=== PATIENT | female | born 1965 ===

== ENCOUNTER 2018-08-19 16:16 | Outpatient (REF) | payer MEDICARE, MEDICAID, SELFPAY ==
[2018-08-19 22:36] LABS: ALT 13 U/L (12-78); AST 9 U/L (15-37); Albumin 3.4 g/dL (3.4-5.0); Alkaline Phosphatase 113 U/L (46-116); Anion Gap 11.6 mmol/L (3-11); BUN 13 mg/dL (7-18); Bilirubin, Total 0.4 mg/dL (0.2-1.0); C-Reactive Protein 1.39 mg/dL (0.0-0.3); CO2 25.4 mmol/L (21.0-32.0); CREATININE 1.01 mg/dL (0.55-1.02); Calcium 9.2 mg/dL (8.5-10.1); Chloride 102 mmol/L (98-107); Estimated GFR 57.79 (mL/min/1.73m2); Glucose 165 mg/dL (70-100); Magnesium 2.2 mg/dL (1.8-2.4); Potassium 4.1 mmol/L (3.5-5.1); Sodium 139 mmol/L (136-145); Total Protein 7.4 g/dL (6.4-8.2)
[2018-08-19 22:41] LABS: Hemoglobin A1C 8.6 % (4.5-6.2)
== END 2018-08-19 16:36 ==
LOC: NCHCN 16:16
PROVIDERS: PCP Family Medicine; Visit Provider Registered Nurse
DX: E11.9 Type 2 diabetes mellitus without complications (principal); E66.01 Morbid (severe) obesity due to excess calories
CPT/HCPCS: 80053; 83036; 83735; 86140

== ENCOUNTER 2019-03-23 23:07 | Outpatient (REF) | payer MEDICARE, MEDICAID, SELFPAY ==
[2019-03-23 21:57] LABS: Abs Immature Grans 0.05 k/cumm (0.0-0.09); Absolute Basophil Count 0.04 k/cumm (0.0-0.2); Absolute Lymphocyte Count 2.73 k/cumm (1.2-3.4); Absolute Monocyte Count 0.84 k/cumm (0.11-0.7); Absolute Neutrophil Count 7.86 k/cumm (1.2-6.7); Basophils % 0.3; Eosinophils % 1.7; HCT 44.6 % (36.0-46.0); HGB 14.6 g/dL (12.0-15.5); Immature Grans % 0.4; Lymphocytes % 23.3; Mean Corp. HGB Concentration 32.7 g/dL (32.0-36.0); Mean Corpuscular Hemoglobin 28.7 pg (27.0-33.0); Mean Corpuscular Volume 87.6 fL (80-95); Mean Platelet Volume 10.6 fL (8.0-11.0); Monocytes % 7.2; Neutrophils % 67.1; Platelet Count 371 x1000/uL (130-400); RBC 5.09 m/cumm (4.00-5.20); RBC Distribution Width 13.4 % (11.7-14.6); White Blood Cell Count 11.72 k/cumm (4.4-10.8)
[2019-03-23 22:17] LABS: ALT 12 U/L (14-59); AST 11 U/L (15-37); Albumin 3.8 g/dL (3.4-5.0); Alkaline Phosphatase 100 U/L (46-116); Anion Gap 9.3 mmol/L (3-11); BUN 12 mg/dL (7-18); Bilirubin, Total 0.7 mg/dL (0.2-1.0); CO2 28.7 mmol/L (21.0-32.0); CREATININE 1.11 mg/dL (0.55-1.02); Calcium 9.2 mg/dL (8.5-10.1); Calculated LDL 59 mg/dL; Chloride 105 mmol/L (98-107); Cholesterol 113 mg/dL (<200); Estimated GFR 51.82 (mL/min/1.73m2); Glucose 104 mg/dL (74-106); HDL Cholesterol 45 mg/dL (40-60); Potassium 4.2 mmol/L (3.5-5.1); Sodium 143 mmol/L (136-145); TSH (W/Ref FT4) 2.24 uIU/mL (0.36-3.74); Total Protein 7.7 g/dL (6.4-8.2); Triglyceride 47 mg/dL (<150)
[2019-03-23 22:27] LABS: Vitamin D 25 Total 50.6 ng/ml (30-100)
[2019-03-23 22:34] LABS: ESR 57 mm/hr (0-30)
== END 2019-03-23 23:27 ==
LOC: NCHCN 23:07
PROVIDERS: PCP Family Medicine; Visit Provider Family Medicine
DX: E11.9 Type 2 diabetes mellitus without complications (principal); R22.31 Localized swelling, mass and lump, right upper limb; M79.601 Pain in right arm; G56.03 Carpal tunnel syndrome, bilateral upper limbs; Z87.19 Personal history of other diseases of the digestive system; Z87.11 Personal history of peptic ulcer disease; R11.10 Vomiting, unspecified
CPT/HCPCS: 80053; 80061; 82306; 85652; 84443; 85025

== ENCOUNTER 2019-06-08 16:03 | Outpatient (REF) | payer MEDICARE, MEDICAID, SELFPAY ==
[2019-06-08 22:05] LABS: COMMENT (LAB VIEW ONLY) 264.09 mg/dL; Microalb ug/mg Crea 3.9 ug/mg Cr
[2019-06-10 10:48] LABS: FSH 10.7 mIU/mL (See Note)
== END 2019-06-08 16:23 ==
LOC: NCHCN 16:03
PROVIDERS: PCP Family Medicine; Visit Provider Internal Medicine
DX: N95.1 Menopausal and female climacteric states (principal)
CPT/HCPCS: 82043; 82570; 83001

== ENCOUNTER 2020-12-07 14:55 | Outpatient (REF) | payer MEDICARE, MEDICAID, SELFPAY ==
[2020-12-07 22:09] LABS: HCT 39.4 % (36.0-46.0); HGB 12.8 g/dL (11.2-15.7); MCH 28.7 pg (27.0-33.0); MCHC 32.5 % (32.0-36.0); MCV 88.3 fL (80-95); Platelet Count 260 10^3/uL (130-400); RBC 4.46 10^6/uL (3.93-5.22); RDW 12.7 % (11.7-14.6); RDW-SD 41.1 fL; WBC 10.88 10^3/uL (4.4-10.8)
[2020-12-07 22:52] LABS: Anion Gap 8.4 mmol/L (3-11); BUN 13 mg/dL (7-18); CO2 26.6 mmol/L (21.0-32.0); CREATININE 1.1 mg/dL (0.55-1.02); Calcium 8.8 mg/dL (8.5-10.1); Chloride 105 mmol/L (98-107); Estimated GFR 51.96 (mL/min/1.73m2); Glucose 168 mg/dL (74-106); Potassium 4.2 mmol/L (3.5-5.1); Sodium 140 mmol/L (136-145); Vitamin B12 591 pg/mL (193-986)
[2020-12-07 22:54] LABS: Hemoglobin A1C 7.7 % (<5.7)
== END 2020-12-07 14:56 | disposition home or self-care (01) ==
LOC: NCHCN 14:55
PROVIDERS: PCP Family Medicine; Referring Provider Nurse Practitioner Family; Visit Provider Nurse Practitioner Family
DX: I10 Essential (primary) hypertension (principal); E11.9 Type 2 diabetes mellitus without complications; K52.81 Eosinophilic gastritis or gastroenteritis; E53.8 Deficiency of other specified B group vitamins
CPT/HCPCS: 80048; 85027; 82607; 83036

== ENCOUNTER 2022-07-06 15:39 | Outpatient (REF) | payer MEDICARE, MEDICAID, SELFPAY ==
[2022-07-06 21:42] LABS: COMMENT (LAB VIEW ONLY) 48.93 mg/dL; Microalb ug/mg Crea 4.7 ug/mg Cr
== END 2022-07-06 15:40 | disposition home or self-care (01) ==
LOC: NCHCN 15:39
PROVIDERS: PCP Family Medicine; Visit Provider Internal Medicine
DX: E11.9 Type 2 diabetes mellitus without complications (principal)
CPT/HCPCS: 82043; 82570

== ENCOUNTER 2023-04-29 09:26 | Outpatient (REF) | payer MEDICARE, MEDICAID, SELFPAY ==
[2023-04-29 22:41] LABS: Vitamin D 25 Total 52.4 ng/mL (30-100)
[2023-04-29 22:44] LABS: Vitamin B12 836 pg/mL (193-986)
[2023-04-29 22:52] LABS: Hemoglobin A1C 6.9 % (<5.7)
[2023-04-29 23:21] LABS: Calculated LDL 57 mg/dL (<100); Cholesterol 116 mg/dL (<200); HDL Cholesterol 50 mg/dL (40-60); Triglyceride 46 mg/dL (<150)
[2023-04-30 16:26] LABS: ALT 12 U/L (14-59); AST 19 U/L (15-37); Albumin 3.5 g/dL (3.4-5.0); Alkaline Phosphatase 94 U/L (46-116); Anion Gap 10.5 mmol/L (3-11); BUN 20 mg/dL (7-18); Bilirubin, Total 0.6 mg/dL (0.2-1.0); CO2 25.5 mmol/L (21.0-32.0); CREATININE 1.3 mg/dL (0.55-1.02); Calcium 9.6 mg/dL (8.5-10.1); Chloride 103 mmol/L (98-107); Estimated GFR 48.56 (mL/min/1.73m2); Glucose 90 mg/dL (74-106); Potassium 4.2 mmol/L (3.5-5.1); Sodium 139 mmol/L (136-145); Total Protein 8.1 g/dL (6.4-8.2)
== END 2023-04-29 09:27 | disposition home or self-care (01) ==
LOC: NCHCN 09:26
PROVIDERS: PCP Family Medicine; Visit Provider Internal Medicine
DX: E11.9 Type 2 diabetes mellitus without complications (principal); E55.9 Vitamin D deficiency, unspecified
CPT/HCPCS: 80053; 80061; 82306; 82607; 83036

== ENCOUNTER 2024-01-02 20:52 | Outpatient (REF) | payer MEDICARE, MEDICAID, SELFPAY ==
[2024-01-02 21:45] LABS: TSH (W/Ref FT4) 2.58 uIU/mL (0.36-3.74)
== END 2024-01-02 20:53 | disposition home or self-care (01) ==
LOC: LBN 20:52
PROVIDERS: PCP Family Medicine; Visit Provider Internal Medicine Endocrinology, Diabetes & Metabolism
DX: R79.89 Other specified abnormal findings of blood chemistry (principal)
CPT/HCPCS: 84443

== ENCOUNTER 2024-05-06 15:34 | Outpatient (REF) | payer MEDICARE, MEDICAID, SELFPAY ==
[2024-05-06 21:37] LABS: HCT 41.5 % (36.0-46.0); HGB 13.5 g/dL (11.2-15.7); MCHC 32.5 % (32.0-36.0); MCV 89 fL (80-95); MPV 9.7 fL (8.0-11.0); Platelet Count 296 10^3/uL (130-400); RBC 4.66 10^6/uL (3.93-5.22); RDW 12.7 % (11.7-14.6); RDW-SD 41.5 fL; WBC 11.14 10^3/uL (4.4-10.8)
[2024-05-06 22:12] LABS: ALT 10 U/L (14-59); AST 18 U/L (15-37); Albumin 3.2 g/dL (3.4-5.0); Alkaline Phosphatase 98 U/L (46-116); Anion Gap 7.1 mmol/L (3-11); BUN 10 mg/dL (7-18); Bilirubin, Total 0.72 mg/dL (0.2-1.0); CO2 26.9 mmol/L (21.0-32.0); CREATININE 1.3 mg/dL (0.55-1.02); Calcium 9.1 mg/dL (8.5-10.1); Calculated LDL 41 mg/dL (<100); Chloride 103 mmol/L (98-107); Cholesterol 102 mg/dL (<200); Estimated GFR 48.26 (mL/min/1.73m2); Glucose 79 mg/dL (74-106); HDL Cholesterol 54 mg/dL (40-60); Potassium 4.1 mmol/L (3.5-5.1); Sodium 137 mmol/L (136-145); Total Protein 7.4 g/dL (6.4-8.2); Triglyceride 38 mg/dL (<150); Vitamin D 25 Total 48.1 ng/mL (30-100)
[2024-05-07 01:20] LABS: Hemoglobin A1C 6.3 % (<5.7)
== END 2024-05-06 15:35 | disposition home or self-care (01) ==
LOC: NCHCN 15:34
PROVIDERS: PCP Family Medicine; Visit Provider Physician Assistant
DX: E11.319 Type 2 diabetes mellitus with unspecified diabetic retinopathy without macular edema (principal); E55.9 Vitamin D deficiency, unspecified
CPT/HCPCS: 80053; 80061; 82306; 85027; 83036

== ENCOUNTER 2024-08-25 15:26 | Outpatient (REF) | payer MEDICARE, MEDICAID, SELFPAY ==
[2024-08-25 23:05] LABS: COMMENT (LAB VIEW ONLY) 178.28 mg/dL
== END 2024-08-25 15:27 | disposition home or self-care (01) ==
LOC: NCHCN 15:26
PROVIDERS: PCP Family Medicine; Visit Provider Physician Assistant
DX: E11.9 Type 2 diabetes mellitus without complications (principal); Z79.4 Long term (current) use of insulin
CPT/HCPCS: 82043; 82570